=== PATIENT | female | born 1960 | race Hispanic/Latino ===

== ENCOUNTER 2017-04-19 16:19 | Emergency (ER) | payer BC, OTHER ==
[2017-04-19 16:42] VITALS: RESP 18
--- NOTE | 2017-04-19 17:40 | C.PDOC ---
History Of Present Illness 56 year old female presents to the ED for evaluation of right leg pain. Patient reports that she may have twisted her leg 2 days ago while crossing the street. She describes a pulling sensation in her leg which is worse when standing from seated position. She has tried to apply heat to area without adequate relief. Time Seen by Provider: 04/19/17 16:42 Chief Complaint (Nursing): Lower Extremity Problem/Injury History Per: Patient History/Exam Limitations: no limitations Onset/Duration Of Symptoms: Days Current Symptoms Are (Timing): Still Present Past Medical History Reviewed: Historical Data, Nursing Documentation, Vital Signs Vital Signs: Last Vital Signs Temp 98.7 F 04/19/17 17:47 Pulse 72 04/19/17 17:47 Resp 18 04/19/17 17:47 BP 112/74 04/19/17 17:47 Pulse Ox 97 04/19/17 18:52 - Medical History PMH: HTN Family History: States: Unknown Family Hx - Social History Hx Alcohol Use: No Hx Substance Use: No - Immunization History Hx Tetanus Toxoid Vaccination: No Hx Influenza Vaccination: No Hx Pneumococcal Vaccination: No Review Of Systems Musculoskeletal: Positive for: Leg Pain Physical Exam - Physical Exam Appears: Non-toxic, No Acute Distress, Other (obese) Skin: Normal Color, Warm, Dry Head: Atraumatic, Normacephalic Eye(s): bilateral: Normal Inspection Neck: Normal ROM Chest: Symmetrical Extremity: Normal ROM, Tenderness (to posterior right leg), No Calf Tenderness, No Swelling, No Other (Redness, Masses) Neurological/Psych: Oriented x3, Normal Speech Gait: Steady ED Course And Treatment O2 Sat by Pulse Oximetry: 97 Medical Decision Making Medical Decision Making: Leg pain, likely muscle strain. No signs of infection, fracture or other concern Treated with motrin and valium On re-eval patient reports pain is improving. Rx was given Disposition Counseled Patient/Family Regarding: Diagnosis, Need For Followup, Rx Given - Disposition Referrals: [facility] [Outside] [facility] [Outside] Disposition: HOME/ ROUTINE Disposition Time: 17:38 Condition: STABLE Additional Instructions: Follow up with your primary medical doctor or clinic in 2-5 days for further evaluation. Take medications as prescribed. Return to the emergency department at any time if symptoms persist or worsen. Prescriptions: Ibuprofen [Motrin] 600 mg PO Q8 #30 tab Methocarbamol [Robaxin] 500 mg PO Q8 #21 tab Instructions: Muscle Strain (ED) Forms: [facility] (Sierra Leonean) - POA Present On Arrival: None - Clinical Impression Clinical Impression: Muscle strain
[2017-04-19 17:49] VITALS: BP 112/74; PULSE 72; TEMP 98.7
[2017-04-19 18:52] VITALS: O2SAT 97
== END 2017-04-19 17:50 | disposition home or self-care (01) ==
LOC: C.ER 16:19
DX: S86.911A Strain of unspecified muscle(s) and tendon(s) at lower leg level, right leg, initial encounter (principal); X58.XXXA Exposure to other specified factors, initial encounter

== ENCOUNTER 2018-03-13 07:46 | Emergency (ER) | payer BC ==
[2018-03-13 07:51] VITALS: BP 148/82; PULSE 74; RESP 16; TEMP 97.9; O2SAT 97
--- NOTE | 2018-03-13 08:11 | C.PDOC ---
History Of Present Illness 57 y/o female presents to ED with c/o left knee pain and swelling since yesterday. 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 Patient denies direct trauma, sensory changes or any other complaints at this time. Time Seen by Provider: 03/13/18 07:51 Chief Complaint (Nursing): Lower Extremity Problem/Injury History Per: Patient History/Exam Limitations: no limitations Onset/Duration Of Symptoms: Days Current Symptoms Are (Timing): Still Present Past Medical History Reviewed: Historical Data, Nursing Documentation, Vital Signs Vital Signs: Last Vital Signs Temp 97.9 F 03/13/18 07:49 Pulse 74 03/13/18 07:49 Resp 16 03/13/18 07:49 BP 148/82 03/13/18 07:49 Pulse Ox 97 03/13/18 08:19 - Medical History PMH: HTN Surgical History: No Surg Hx Family History: States: No Known Family Hx - Social History Hx Alcohol Use: No Hx Substance Use: No - Immunization History Hx Tetanus Toxoid Vaccination: No Hx Influenza Vaccination: No Hx Pneumococcal Vaccination: No Review Of Systems Musculoskeletal: Positive for: Leg Pain. Negative for: Back Pain Skin: Negative for: Rash, Bruising Physical Exam - Physical Exam Appears: Non-toxic, No Acute Distress Skin: Warm, Dry, No Rash, No Ecchymosis, Other (two superficial abrasion over left knee) Head: Atraumatic, Normacephalic Eye(s): bilateral: Normal Inspection Oral Mucosa: Moist Extremity: Tenderness (left knee diffuse on patella), Capillary Refill (<2 seconds), No Deformity, Swelling (to lateral aspect of left knee) Pulses: Left Dorsalis Pedis: Normal Neurological/Psych: Oriented x3, Normal Speech, Normal Motor, Normal Sensation ED Course And Treatment O2 Sat by Pulse Oximetry: 97 (RA) Pulse Ox Interpretation: Normal Progress Note: Left knee xray ordered. Ibuprofen administered Disposition Counseled Patient/Family Regarding: Studies Performed, Diagnosis, Need For Followup, Rx Given - Disposition Referrals: Maribel Rivera MD [Medical Doctor] - Yair Ferreira III, MD [Staff Provider] - [facility] [Outside] Disposition: HOME/ ROUTINE Disposition Time: 08:45 Condition: STABLE Additional Instructions: FOLLOW UP WITH ORTHOPEDICS WITHIN 1 WEEK ELEVATE LEG MUCH POSSIBLE RETURN TO ER IF SYMPTOMS WORSEN Prescriptions: Naproxen 375 mg PO BID PRN #20 tablet PRN Reason: pain Instructions: Osteoarthritis (DC), Knee Sprain (DC) Forms: [employer] (T[place]ight) Print Language: UKRAINIAN - POA Present On Arrival: None - Clinical Impression Clinical Impression: Osteoarthrosis, Left knee sprain - Scribe Statement The provider has reviewed the documentation as recorded by the Hilton Barillas All medical record entries made by the Hilton were at my direction and personally dictated by me. I have reviewed the chart and agree that the record accurately reflects my personal performance of the history, physical exam, medical decision making, and the department course for this patient. I have also personally directed, reviewed, and agree with the discharge instructions and disposition.
--- NOTE | 2018-03-13 08:30 | RAD ---
Date of service: 03/13/2018 PROCEDURE: Left Knee Radiographs. HISTORY: Pain. COMPARISON: None. FINDINGS: BONES: No fracture appreciated JOINTS: Tricompartmental arthrosis JOINT EFFUSION: None. OTHER FINDINGS: None. IMPRESSION: Severe osteoarthrosis - medial femoral tibial and patellofemoral compartments most severely affected.
== END 2018-03-13 09:07 | disposition home or self-care (01) ==
LOC: C.ER 07:46
DX: S83.92XA Sprain of unspecified site of left knee, initial encounter (principal); X58.XXXA Exposure to other specified factors, initial encounter; I10 Essential (primary) hypertension

== ENCOUNTER 2018-06-24 16:09 | Emergency (ER) | payer BC ==
[2018-06-24 16:15] VITALS: BP 157/85; PULSE 91; RESP 18; TEMP 99; O2SAT 100
--- NOTE | 2018-06-24 16:59 | C.PDOC ---
History Of Present Illness 58 y/o female presents to the ER complaining of cough which has been present for the past several days. Patient states that she has fever with 101.0 F temperature today and yesterday, pt took advil a few hrs ago. Patient reports that she is also losing her voice. Denies having nausea, vomiting, and abdominal pain. Time Seen by Provider: 06/24/18 16:21 Chief Complaint (Nursing): ENT Problem History Per: Patient History/Exam Limitations: no limitations Onset/Duration Of Symptoms: Days Current Symptoms Are (Timing): Still Present Severity: Moderate Past Medical History Reviewed: Historical Data, Nursing Documentation, Vital Signs Vital Signs: Last Vital Signs Temp 99 F 06/24/18 16:13 Pulse 91 H 06/24/18 16:13 Resp 18 06/24/18 16:13 BP 157/85 H 06/24/18 16:13 Pulse Ox 100 06/24/18 16:13 - Medical History PMH: HTN Other Surgeries: Hx of surgeries Family History: States: No Known Family Hx - Social History Hx Alcohol Use: No Hx Substance Use: No - Immunization History Hx Tetanus Toxoid Vaccination: No Hx Influenza Vaccination: No Hx Pneumococcal Vaccination: No Review Of Systems Except As Marked, All Systems Reviewed And Found Negative. Constitutional: Positive for: Fever. Negative for: Chills Cardiovascular: Negative for: Chest Pain Respiratory: Positive for: Cough. Negative for: Shortness of Breath Gastrointestinal: Negative for: Nausea, Vomiting, Abdominal Pain Physical Exam - Physical Exam Appears: Non-toxic, No Acute Distress Skin: Normal Color, Warm, Dry Head: Atraumatic, Normacephalic Eye(s): bilateral: Normal Inspection Ear(s): Bilateral: Normal Nose: Normal Oral Mucosa: Moist Throat: Normal, No Erythema, No Exudate Neck: Supple Chest: Symmetrical Cardiovascular: Rhythm Regular Respiratory: Normal Breath Sounds, No Rales, No Rhonchi, No Wheezing Gastrointestinal/Abdominal: Soft, No Tenderness, No Guarding, No Rebound Neurological/Psych: Oriented x3, Normal Speech ED Course And Treatment O2 Sat by Pulse Oximetry: 100 (RA) Pulse Ox Interpretation: Normal Disposition Counseled Patient/Family Regarding: Diagnosis, Need For Followup, Rx Given - Disposition Referrals: Maribel Rivera MD [Medical Doctor] - Disposition: HOME/ ROUTINE Disposition Time: 16:55 Condition: STABLE Additional Instructions: FOLLOW UP WITH PMD TOMORROW FOR RE-EVALUATION. IF SYMPTOMS GET WORSE OR ANY NEW CONCERNING SYMPTOMS DEVELOP RETURN TO ED. 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 - Scribe Statement The provider has reviewed the documentation as recorded by the Hunteribe Idania Hirsch Provider Attestation All medical record entries made by the Hilton were at my direction and personally dictated by me. I have reviewed the chart and agree that the record accurately reflects my personal performance of the history, physical exam, medical decision making, and the department course for this patient. I have also personally directed, reviewed, and agree with the discharge instructions and disposition.
== END 2018-06-24 17:08 | disposition home or self-care (01) ==
LOC: C.ER 16:09
DX: J06.9 Acute upper respiratory infection, unspecified (principal); I10 Essential (primary) hypertension

== ENCOUNTER 2018-08-07 18:44 | Emergency (ER) | payer BC ==
[2018-08-07 19:25] VITALS: BP 160/86; PULSE 81; TEMP 99.6; O2SAT 97
--- NOTE | 2018-08-07 20:45 | C.PDOC ---
History Of Present Illness 58 y/o female presents to the ER complaining of itchy red rash in front of neck which has been present since yesterday. Patient states that the rash extends to the chest. Patient reports that she is not sure about the source for the rash. Denies having fever,chills, facial swelling, throat swelling, CP, SOB, and palpitations. Chief Complaint (Nursing): Abnormal Skin Integrity History Per: Patient History/Exam Limitations: no limitations Onset/Duration Of Symptoms: Days Current Symptoms Are (Timing): Still Present Quality Of Symptoms: Itching Severity: Moderate Past Medical History Reviewed: Historical Data, Nursing Documentation, Vital Signs Vital Signs: Last Vital Signs Temp 99.6 F 08/07/18 19:22 Pulse 81 08/07/18 19:22 Resp 24 08/07/18 19:22 BP 160/86 H 08/07/18 19:22 Pulse Ox 97 08/07/18 19:22 - Medical History PMH: HTN Other Surgeries: Hx of surgeries Family History: States: No Known Family Hx - Social History Hx Alcohol Use: No Hx Substance Use: No - Immunization History Hx Tetanus Toxoid Vaccination: No Hx Influenza Vaccination: No Hx Pneumococcal Vaccination: No Review Of Systems Constitutional: Negative for: Fever, Chills, Weakness Eyes: Negative for: Redness ENT: Negative for: Mouth Swelling Cardiovascular: Negative for: Chest Pain Respiratory: Negative for: Cough, Shortness of Breath Gastrointestinal: Negative for: Nausea, Vomiting, Diarrhea Genitourinary: Negative for: Dysuria, Hematuria Musculoskeletal: Negative for: Back Pain Skin: Positive for: Rash Neurological: Negative for: Weakness, Numbness, Dizziness Physical Exam - Physical Exam Appears: Non-toxic, No Acute Distress Skin: Warm, Dry, Rash (red papular rash in circular distribution around neck) Head: Atraumatic, Normacephalic, Other (no angioedema) Eye(s): bilateral: Normal Inspection Nose: Normal Oral Mucosa: Moist Tongue: Normal Appearing, No Swelling Lips: Normal Appearing, No Swelling Throat: Normal (no swelling or injection), No Erythema, No Exudate, Other (airway patent) Neck: Supple Chest: Symmetrical Cardiovascular: Rhythm Regular Respiratory: Normal Breath Sounds, No Rales, No Rhonchi, No Wheezing, Other (normal inspiratory effor, speaking in full sentences) Neurological/Psych: Oriented x3, Normal Speech ED Course And Treatment O2 Sat by Pulse Oximetry: 97 (RA) Pulse Ox Interpretation: Normal Medical Decision Making Medical Decision Making: Plan: --Benadryl PO Updates: Patient does not appears to have symptoms indicating anaphylaxis. 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 - Scribe Statement The provider has reviewed the documentation as recorded by the Hilton Hirsch Provider Attestation All medical record entries made by the Hunteribe were at my direction and personally dictated by me. I have reviewed the chart and agree that the record accurately reflects my personal performance of the history, physical exam, medical decision making, and the department course for this patient. I have also personally directed, reviewed, and agree with the discharge instructions and disposition.
[2018-08-08 00:05] VITALS: RESP 20
== END 2018-08-07 20:54 | disposition home or self-care (01) ==
LOC: C.ER 18:44
DX: L23.9 Allergic contact dermatitis, unspecified cause (principal)